=== PATIENT | male | born 1955 | race Caucasian/White ===

== ENCOUNTER 2019-06-21 18:25 | Inpatient (IN) ==
[2019-06-21] MEDS ORDERED: ACETAMINOPHEN 500 MG TABLET PO PRN (20:27)
[2019-06-21] MEDS ORDERED: ONDANSETRON 4 MG/2 ML VIAL IV PRN (20:27)
[2019-06-21] MEDS ORDERED: traZODone 50 MG TABLET PO PRN (20:27)
[2019-06-21] MEDS ORDERED: DOCUSATE SODIUM 100 MG CAPSULE PO PRN (20:27)
[2019-06-21] MEDS ORDERED: LACTULOSE 20 GM/30 ML UDCUP PO PRN (20:27)
[2019-06-21] MEDS ORDERED: LEVOFLOXACIN INJ 500 MG in PREMIX 1 EACH IV SCH (21:00)
[2019-06-21] MEDS ORDERED: DOXYCYCLINE HYCLATE INJ 100 MG in SODIUM CHLORIDE 0.9% 100 ML IV SCH (21:00)
[2019-06-21 21:25] LABS: Apearance,Urine Slightly Hazy (Clear); Bilirubin,Urine Negative (Negative); Blood, Urine Negative (Negative); Glucose,Urine (UA) Negative (Negative); Ketones,Urine 5 mg/dL (Negative); Mucus,Urine Occasional /LPF (Occasional); Nitrite,Urine Negative (Negative); Protein,Urine 30 MG/DL; RBC,Urine 5 /HPF (0-4); Squamous Epithelial Cell,Urine Occasional /HPF (0-10); Urine Color Yellow (Yellow); Urine Specific Gravity 1.033 (1.001-1.035); Urine Urobilinogen < 2.0 EU/DL (0.2-1.0); WBC,Urine 1 /HPF (0-6)
[2019-06-21] MEDS: levETIRAcetam 500 MG TABLET PO SCH (22:02)
[2019-06-21] MEDS: SOTALOL 80 MG TABLET PO SCH (22:03)
[2019-06-21] MEDS: PIPERACILLIN/TAZOBACTAM 3,375 MG in SODIUM CHLORIDE 0.9% 100 ML IV SCH (22:03)
[2019-06-21] MEDS: APIXABAN 5 MG TABLET PO SCH (22:03)
[2019-06-21] MEDS ORDERED: ZALEPLON 5 MG CAPSULE PO PRN (22:07)
[2019-06-22] MEDS ORDERED: VANCOMYCIN INJ 1,000 MG in SODIUM CHLORIDE 0.9% 250 ML IV ONE (02:00)
[2019-06-22] MEDS ORDERED: SODIUM CHLORIDE 0.9% 500 ML IV ONE (03:58)
[2019-06-22 04:47] LABS: Basophils # 0.1 10*3/uL (0.0-0.2); Basophils % 0.5 % (0.0-0.8); Eosinophils # 0.1 10*3/uL (0.0-0.87); Eosinophils % 0.2 % (0.00-10.9); Hematocrit 34.5 VOL% (42.0-52.0); Hemoglobin 11.2 GM/DL (14.0-18.0); Immature Granulocytes % 0.9 %; Immature Granulocytes Absolute 0.19 #; Lymphocytes # 2.2 10*3/uL (1.4-4.0); Lymphocytes % 9.8 % (21.2-54.2); Mean Corpuscular HGB Conc 32.5 GM/DL (32-36); Mean Corpuscular Volume 88.5 FL (87-102); Mean Platelet Volume 11.2 FL (9.6-12.0); Monocytes % 8.1 % (1.7-12.7); Neutrophils % 80.5 % (38.7-73.9); Platelet Count 161 T/CUMM (130-400); Red Cell Distribution Width 14.4 % (9.3-17.3); White Blood Count 21.9 T/CUMM (4-12)
[2019-06-22 05:07] LABS: Calcium 7.9 MG/DL (8.5-10.1); Osmolality,Calculated 283.3 MOS/KG (273-304); Risk Ratio 2.44; VLDL CHOLESTEROL 12.6 MG/DL
[2019-06-22] MEDS ORDERED: NOREPINEPHRINE 8 MG in SODIUM CHLORIDE 0.9% 242 ML IV PRN (05:12)
[2019-06-22 05:21] LABS: Hypochromasia Slight; Lymphocytes 11 % (20-55); Platelet Estimate Adequate; Segmented Neutrophils 82 % (50-85); Total Cells Counted 100
[2019-06-22] MEDS: PIPERACILLIN/TAZOBACTAM 3,375 MG in SODIUM CHLORIDE 0.9% 100 ML IV SCH ×3 (05:47→21:54)
[2019-06-22] MEDS ORDERED: MAGNESIUM SULF RIDER 4 GM in PREMIX 1 EACH IV PRN (08:39)
[2019-06-22] MEDS ORDERED: MAGNESIUM SULF RIDER 2 GM in PREMIX 1 EACH IV PRN (08:39)
[2019-06-22] MEDS: APIXABAN 5 MG TABLET PO SCH ×2 (09:05→21:54)
[2019-06-22] MEDS: levETIRAcetam 500 MG TABLET PO SCH ×2 (09:05→21:54)
[2019-06-22] MEDS: SOTALOL 80 MG TABLET PO SCH ×2 (09:05→21:54)
[2019-06-22] MEDS: ASPIRIN CHEW 81 MG TABLET PO SCH (09:06)
[2019-06-22] MEDS: traMADol 50 MG TABLET PO PRN (11:01)
[2019-06-22] MEDS: guaiFENesin/DM ER 600-30 MG TABLET PO SCH ×2 (11:02→21:54)
[2019-06-22] MEDS: FUROSEMIDE 40 MG TABLET PO SCH (11:02)
[2019-06-22] MEDS: ALBUTEROL/IPRATROPIUM 3 ML NEB RESP TX SCH ×2 (13:03→19:15)
[2019-06-22] MEDS: VANCOMYCIN INJ 750 MG in SODIUM CHLORIDE 0.9% 250 ML IV SCH (15:49)
[2019-06-23] MEDS: ALBUTEROL/IPRATROPIUM 3 ML NEB RESP TX SCH ×4 (01:15→19:03)
[2019-06-23] MEDS: VANCOMYCIN INJ 750 MG in SODIUM CHLORIDE 0.9% 250 ML IV SCH ×2 (03:19→16:04)
[2019-06-23 04:49] LABS: Basophils # 0.1 10*3/uL (0.0-0.2); Basophils % 0.5 % (0.0-0.8); Eosinophils # 0.1 10*3/uL (0.0-0.87); Eosinophils % 0.5 % (0.00-10.9); Hematocrit 35.9 VOL% (42.0-52.0); Hemoglobin 11.8 GM/DL (14.0-18.0); Immature Granulocytes % 0.6 %; Lymphocytes # 1.4 10*3/uL (1.4-4.0); Lymphocytes % 8.3 % (21.2-54.2); Mean Corpuscular HGB Conc 32.9 GM/DL (32-36); Mean Corpuscular Volume 88.2 FL (87-102); Mean Platelet Volume 11.4 FL (9.6-12.0); Monocytes % 8.3 % (1.7-12.7); Neutrophils % 81.8 % (38.7-73.9); Platelet Count 174 T/CUMM (130-400); Red Blood Count 4.07 MC/CUMM (3.8-5.5)
[2019-06-23 05:07] LABS: Calcium 8.5 MG/DL (8.5-10.1); Osmolality,Calculated 276.7 MOS/KG (273-304)
[2019-06-23] MEDS: PIPERACILLIN/TAZOBACTAM 3,375 MG in SODIUM CHLORIDE 0.9% 100 ML IV SCH ×3 (05:11→20:44)
[2019-06-23] MEDS: traMADol 50 MG TABLET PO PRN (05:12)
[2019-06-23] MEDS: levETIRAcetam 500 MG TABLET PO SCH ×2 (08:27→20:43)
[2019-06-23 09:35] LABS: Basophils # 0.1 10*3/uL (0.0-0.2); Basophils % 0.3 % (0.0-0.8); Eosinophils # 0.1 10*3/uL (0.0-0.87); Eosinophils % 0.4 % (0.00-10.9); Hemoglobin 11.9 GM/DL (14.0-18.0); Immature Granulocytes % 0.6 %; Lymphocytes # 0.7 10*3/uL (1.4-4.0); Lymphocytes % 4.2 % (21.2-54.2); Mean Corpuscular HGB Conc 33.1 GM/DL (32-36); Mean Corpuscular Volume 87.8 FL (87-102); Monocytes % 6.6 % (1.7-12.7); Neutrophils % 87.9 % (38.7-73.9); Platelet Count 183 T/CUMM (130-400); White Blood Count 16.2 T/CUMM (4-12)
[2019-06-23] MEDS: APIXABAN 5 MG TABLET PO SCH (09:47)
[2019-06-23 10:23] LABS: Lymphocytes 3 % (20-55); Segmented Neutrophils 92 % (50-85)
[2019-06-23 10:24] LABS: Anisocytosis Slight; Burr Cells Slight; Hypochromasia Slight; Ovalocytes Slight; Schistocytes Slight
[2019-06-23 10:25] LABS: Platelet Estimate Decreased; Total Cells Counted 100
[2019-06-23] MEDS: SOTALOL 80 MG TABLET PO SCH ×2 (11:01→20:41)
[2019-06-23] MEDS: LISINOPRIL 2.5 MG TABLET PO SCH (11:01)
[2019-06-23] MEDS: FUROSEMIDE 40 MG TABLET PO SCH (11:02)
[2019-06-23] MEDS: guaiFENesin/DM ER 600-30 MG TABLET PO SCH ×2 (11:02→20:43)
[2019-06-23] MEDS: DILTIAZEM CD 120 MG CAPSULE PO SCH (11:02)
[2019-06-23] MEDS: ASPIRIN CHEW 81 MG TABLET PO SCH (11:06)
[2019-06-23] MEDS: CHLORHEXIDINE 0.12% ORAL RINSE 60 ML BOTTLE SWISH/SPIT SCH (20:43)
[2019-06-24] MEDS: ALBUTEROL/IPRATROPIUM 3 ML NEB RESP TX SCH ×2 (00:31→07:14)
[2019-06-24] MEDS ORDERED: VANCOMYCIN INJ 1,000 MG in SODIUM CHLORIDE 0.9% 250 ML IV SCH (04:00)
[2019-06-24 04:44] LABS: Basophils % 0.3 % (0.0-0.8); Eosinophils % 0.3 % (0.00-10.9); Hematocrit 36.5 VOL% (42.0-52.0); Hemoglobin 12.1 GM/DL (14.0-18.0); Immature Granulocytes % 0.6 %; Immature Granulocytes Absolute 0.09 #; Lymphocytes # 1.7 10*3/uL (1.4-4.0); Lymphocytes % 12.5 % (21.2-54.2); Mean Corpuscular HGB Conc 33.2 GM/DL (32-36); Mean Corpuscular Volume 86.3 FL (87-102); Mean Platelet Volume 11.8 FL (9.6-12.0); Monocytes % 12.8 % (1.7-12.7); Neutrophils % 73.5 % (38.7-73.9); Platelet Count 186 T/CUMM (130-400); Red Blood Count 4.23 MC/CUMM (3.8-5.5); Red Cell Distribution Width 13.7 % (9.3-17.3); White Blood Count 13.9 T/CUMM (4-12)
[2019-06-24 05:09] LABS: Calcium 8.8 MG/DL (8.5-10.1); Osmolality,Calculated 274.7 MOS/KG (273-304)
[2019-06-24] MEDS: PIPERACILLIN/TAZOBACTAM 3,375 MG in SODIUM CHLORIDE 0.9% 100 ML IV SCH (06:05)
[2019-06-24] MEDS: SOTALOL 80 MG TABLET PO SCH (08:38)
[2019-06-24] MEDS: DILTIAZEM CD 120 MG CAPSULE PO SCH (08:38)
[2019-06-24] MEDS: guaiFENesin/DM ER 600-30 MG TABLET PO SCH (08:40)
[2019-06-24] MEDS: FUROSEMIDE 40 MG TABLET PO SCH (08:41)
[2019-06-24] MEDS: levETIRAcetam 500 MG TABLET PO SCH (08:41)
[2019-06-24] MEDS: LISINOPRIL 2.5 MG TABLET PO SCH (08:41)
[2019-06-24] MEDS: ASPIRIN CHEW 81 MG TABLET PO SCH (08:41)
[2019-06-24] MEDS: CHLORHEXIDINE 0.12% ORAL RINSE 60 ML BOTTLE SWISH/SPIT SCH (08:42)
[2019-06-24 11:41] VITALS: BP 79/43
[2019-06-24] MEDS ORDERED: AMOXICILLIN/CLAV 500 MG TABLET PO SCH (21:00)
== END 2019-06-24 11:46 | disposition home or self-care (01) | DRG 194 ==
LOC: N.CC 19:43 → SUATTDRO 19:43 → N.2E 06-22 12:31
PROVIDERS: ADMIT Internal Medicine; ATTEND Hospitalist